=== PATIENT | male | born 1965 | race Caucasian/White ===

== ENCOUNTER 2022-11-29 09:19 | Emergency (ER) | payer MEDICARE ==
[~2022-11-29] VITALS: Ht 185.4 cm; Wt 173.5 kg
[~2022-11-29 09:19] MED LIST: ASCORBIC ACID500 M2 PO; BACTRIM 400-801 EACH PO; CALCIUM PO; CELEBREX100 MG PO; DELSYM30 MG/5 M1 PO; DILTIAZEM 24HR120 MG PO; FLONASE16 GM; FOLIC ACID0.4 MG PO; ISENTRESS400 MG PO; LEVOTHYROXINE125 MCG PO; LIQUID B-11000 MCG/1 PO; LISINOPRIL10 MG PO; LOVAZA1 GM PO; LYRICA150 MG PO; MELATONIN3 MG PO; NEXIUM40 MG PO; NYSTATIN15 G1 TOP; PEPCID20 MG PO; PLAQUENIL200 MG PO; PROAIR HFA INH8.5 GM INH; RANITIDINE HCL300 MG PO; SPIRIVA18 MCG INH; SYMBICORT 16010.2 GM INH; TRUVADA 200 MG1 EACH PO; VENTOLIN HFA18 GM INH
[2022-11-29 10:46] VITALS: O2SAT 98
[2022-11-29] MEDS ORDERED: FUROSEMIDE40 MG PO (11:06)
[2022-11-29] MEDS ORDERED: VITAMIN E400 UNI1 PO (11:06)
[2022-11-29] MEDS ORDERED: OZEMPIC0.25 MG/0. SC (11:06)
[2022-11-29] MEDS ORDERED: D3-5000125 MCG PO (11:06)
[2022-11-29] MEDS ORDERED: VASOTEC10 M1 PO (11:06)
[2022-11-29] MEDS ORDERED: METFORMIN HCL500 M2 PO (11:06)
[2022-11-29] MEDS ORDERED: NYSTATIN1000000 UN (11:06)
[2022-11-29] MEDS ORDERED: ONE-A-DAY MEN'1 EAC4 (11:06)
[2022-11-29] MEDS ORDERED: MUCINEX DM ER1 EACH PO (11:06)
[2022-11-29] MEDS ORDERED: FLUOXETINE HCL20 MG PO (11:06)
[2022-11-29] MEDS ORDERED: ALBUTEROL1.25 MG/3 NEB (11:06)
[2022-11-29] MEDS ORDERED: BENZONATATE100 MG PO (11:06)
[2022-11-29] MEDS ORDERED: CEFUROXIME500 MG PO (11:22)
== END 2022-11-29 11:32 | disposition home or self-care (01) ==
LOC: FSED 09:27
DX: R05.9 Cough, unspecified (principal); J20.9 Acute bronchitis, unspecified; R07.81 Pleurodynia; E11.65 Type 2 diabetes mellitus with hyperglycemia; I50.9 Heart failure, unspecified; J44.9 Chronic obstructive pulmonary disease, unspecified; E78.5 Hyperlipidemia, unspecified; E03.9 Hypothyroidism, unspecified; G47.33 Obstructive sleep apnea (adult) (pediatric); B20 Human immunodeficiency virus [HIV] disease; M79.7 Fibromyalgia; E66.01 Morbid (severe) obesity due to excess calories; Z68.43 Body mass index [BMI] 50.0-59.9, adult
CPT/HCPCS: 71250; 80048; 80076; 83880; 85025; 99284